=== PATIENT | male | born 1975 | race Caucasian/White ===

== ENCOUNTER 2023-04-02 02:57 | Day surgery (SDC) | payer OTHER, SELFPAY ==
[2023-03-23 11:20] VITALS: BMI 37.5
--- NOTE | 2023-03-31 12:01 | SUR.PREOP ---
Patient called regarding upcoming procedure. Reviewed preop instructions, appointment times, and procedure prep.
--- NOTE | 2023-04-01 12:33 | P.HP_ITS ---
History of Present Illness History of Present Illness Consent: Risks, benefits, and alternatives have been discussed and questions answered. Patient agrees to proceed with procedure. Chief complaint: neoplasm screening Narrative: Babatunde Stewart is a 47 year old male Referred for colon cancer screening. Review of Systems Review of Systems: All systems reviewed & are unremarkable except as noted in HPI and below PMFSH Past Medical History Medical History HTN (hypertension) Hypercholesteremia Hypogonadism Testosterone deficiency Vitamin D deficiency Surgical History Surgical History Hx of tonsillectomy [place] teeth extracted Family History Family History Father Hypertension Heart disease Asthma Sibling Hypertension Mother Hypertension Social History Social History Smoking status: Never smoker Alcohol intake: current Alcohol use details: once a month maybe - rarely Substance use: never Substance use type: does not use Lack of Transportation: No Lack of Food: Never True Current Housing: I Have Housing Concerned About Future Housing: No Difficulty Paying Gas/Electric Bills: No Difficulty Paying for Meds: No Currently Unemployed: No Education: Bachelor's Degree Living arrangements: with family Occupation/Education: occupation Additional occupation/education comments: [employer] Gender identity (if verbalized by the patient): Male Spiritual care concerns: No Meds Home Medications and Allergies Home Medications Medication Instructions Recorded Confirmed Type cholecalciferol (vitamin D3) 10 10 mcg PO DAILY 05/22/22 03/23/23 History mcg (400 unit) capsule cyanocobalamin (vitamin B-12) 1,000 mcg PO DAILY 05/22/22 03/23/23 History 1,000 mcg capsule psyllium husk 0.4 gram capsule 0.4 g PO DAILY 05/22/22 03/23/23 History (Daily Fiber) lisinopril 40 mg tablet 20 mg PO DAILY #45 tabs 01/21/23 03/23/23 Rx testosterone (AndroGel) 2 pump topical DAILY #225 grams 01/22/23 03/23/23 Rx atorvastatin 10 mg tablet 10 mg PO DAILY #90 tabs 01/26/23 03/23/23 Rx Allergies Allergy/AdvReac Type Severity Reaction Status Date / Time Penicillins AdvReac Unknown Other Verified 04/02/23 06:19 Exam Const: General: alert Orientation/consciousness: patient oriented x3 Resp: Auscultation: clear to auscultation bilaterally Cardio: Rhythm: regular rhythm GI: GI Palp: Yes Soft to palpation and No Tenderness to palpation present (GI) Neuro: General: patient oriented x3 Assessment and Plan Assessment and plan (1) Screening for colon cancer: Code(s): Z12.11 - Encounter for screening for malignant neoplasm of colon Status: Acute Assessment and Plan: Colonoscopy with possible biopsy or polypectomy or cautery or injection of substances.
[2023-04-02 06:24] VITALS: BP 136/87; PULSE 73; RESP 20; TEMP 36.4; O2SAT 98; BMI 37.2
[2023-04-02] MEDS: LACTATED RINGERS 1,000 ML 150 ML IV CONT (06:32)
--- NOTE | 2023-04-02 06:58 | WPDANESEPPF ---
Anes - Initial Pre Proc Eval Procedure: Operation Date: 04/02/23 07:30 Proposed Procedures p Screening Colonoscopy - Godwin Gupta MD Date/Time: 04/02/23 06:58 Surgeon: Godwin Gupta MD Pre Op Diagnosis: neoplasm screening Patient Data Age: 47 Gender: M Height: 1.8 m Weight: 121 kg Last Vital Signs Temp 36.4 C 04/02/23 06:24 Pulse 73 04/02/23 06:24 Resp 20 04/02/23 06:24 BP 136/87 04/02/23 06:24 Pulse Ox 98 04/02/23 06:24 O2 Del Method Room Air 04/02/23 06:24 Allergies Allergy/AdvReac Type Severity Reaction Status Date / Time Penicillins AdvReac Unknown Other Verified 04/02/23 06:19 Home Medications Medication Instructions Recorded Confirmed Type cholecalciferol (vitamin D3) 10 10 mcg PO DAILY 05/22/22 03/23/23 History mcg (400 unit) capsule cyanocobalamin (vitamin B-12) 1,000 mcg PO DAILY 05/22/22 03/23/23 History 1,000 mcg capsule psyllium husk 0.4 gram capsule 0.4 g PO DAILY 05/22/22 03/23/23 History (Daily Fiber) lisinopril 40 mg tablet 20 mg PO DAILY #45 tabs 01/21/23 03/23/23 Rx testosterone (AndroGel) 2 pump topical DAILY #225 grams 01/22/23 03/23/23 Rx atorvastatin 10 mg tablet 10 mg PO DAILY #90 tabs 01/26/23 03/23/23 Rx Patient hx anesthesia problems: none Family hx anesthesia problems: none Results Review: All pre-operative results and documents have been reviewed as part of the pre-operative evaluation. [facility] Past Medical History Medical History HTN (hypertension) Hypercholesteremia Hypogonadism Testosterone deficiency Vitamin D deficiency Surgical History Surgical History Hx of tonsillectomy [place] teeth extracted Family History Family History Father Hypertension Heart disease Asthma Sibling Hypertension Mother Hypertension Social History Social History Smoking status: Never smoker Alcohol intake: current Alcohol use details: once a month maybe - rarely Substance use: never Substance use type: does not use Lack of Transportation: No Lack of Food: Never True Current Housing: I Have Housing Concerned About Future Housing: No Difficulty Paying Gas/Electric Bills: No Difficulty Paying for Meds: No Currently Unemployed: No Education: Bachelor's Degree Living arrangements: with family Occupation/Education: occupation Additional occupation/education comments: [employer] Gender identity (if verbalized by the patient): Male Spiritual care concerns: No Anes - Eval Final PreProcedure Day of Procedure 04/02/23 06:58 Patient weight: obese Heart: regular rate and rhythm Lungs: clear to auscultation Airway: Mallampati scale class II Neurological: alert and oriented Last oral intake: >/= 8 hours ASA classification: III Emergent: no Anesthetic plan: proceed Anesthesia type and monitoring: general GIVS and standard monitoring Results Review: All pre-operative results and documents have been reviewed as part of the pre-operative evaluation. Informed Consent: The patient's anesthetic plan and its attendant risks and benefits were discussed with the patient/family/POA. Questions were solicited and answers provided to the satisfaction of the patient/family/POA.
[2023-04-02 07:46] VITALS: BP 92/40; PULSE 63; RESP 22; O2SAT 96
[2023-04-02 07:56] VITALS: BP 104/63; PULSE 64; RESP 18; O2SAT 99
[2023-04-02 08:04] VITALS: BP 106/69; PULSE 65; RESP 18; O2SAT 99
== END 2023-04-02 08:12 | disposition home or self-care (01) ==
PROVIDERS: PCP Physician Assistant Medical; Visit Provider Internal Medicine Gastroenterology
PROC: 0DJD8ZZ Inspection of Lower Intestinal Tract, Via Natural or Artificial Opening Endoscopic (ICD-10-PCS; CPT 45378; principal; 2023-04-02 07:30)
DX: Z12.11 Encounter for screening for malignant neoplasm of colon (principal); I10 Essential (primary) hypertension; E78.00 Pure hypercholesterolemia, unspecified; E55.9 Vitamin D deficiency, unspecified; Z79.890 Hormone replacement therapy; E66.9 Obesity, unspecified; Z68.37 Body mass index [BMI] 37.0-37.9, adult
CPT/HCPCS: 45378; J2704; J7120